=== PATIENT | female | born 1960 | race Caucasian/White ===

== ENCOUNTER 2023-05-22 16:10 | Emergency (ER) | payer SELFPAY ==
[2023-05-22] MEDS ORDERED: traMADol 50 MG Tab PO ONE (18:54)
[2023-05-22] MEDS ORDERED: Silver Sulfadiazine 1% Crm 50 GM Tube TOP ONE (18:54)
[2023-05-22] MEDS ORDERED: Ibuprofen 600 MG Tab PO ONE (18:54)
== END 2023-05-22 19:25 | disposition home or self-care (01) ==
LOC: MW.ED 16:10
DX: T22.112A Burn of first degree of left forearm, initial encounter (principal); E78.00 Pure hypercholesterolemia, unspecified; Z79.899 Other long term (current) drug therapy; X19.XXXA Contact with other heat and hot substances, initial encounter; Y92.89 Other specified places as the place of occurrence of the external cause; Y99.0 Civilian activity done for income or pay
CPT/HCPCS: 99283; A9270